=== PATIENT | female | born 1995 | race Caucasian/White ===

== ENCOUNTER → 2017-07-02 | Outpatient (CLI) | payer OTHER | END | disposition home or self-care (01) | LOC: C.RDSM 08:02 | PROVIDERS: ATTEND Orthopaedic Surgery | DX: M25.551 Pain in right hip (principal) ==

== ENCOUNTER → 2017-07-23 | Outpatient (CLI) | payer OTHER | END | disposition home or self-care (01) | LOC: C.RDSM 12:53 | PROVIDERS: ATTEND Orthopaedic Surgery | DX: M25.351 Other instability, right hip (principal) ==

== ENCOUNTER → 2017-08-09 | Day surgery (SDC) | payer OTHER ==
[2017-08-04 15:03] VITALS: Ht 165.1 cm; Wt 63.6 kg
[~2017-08-09] VITALS: Ht 165.1 cm; Wt 63.6 kg
[~2017-08-09] MED LIST: ATROPINE SULFATE 0.1 MG/ML 5ML SYR IV PRN; CEFAZOLIN 2000MG IV PUSH 10 ML IV SCH; DEXAMETHASONE SOD INJ 4 MG/ML VIAL ONE; EpINEphrine INJ 1MG/ML AMP 1 MG/ML AMP ONE; FENTANYL CITRATE INJ 50 MCG/1 ML 2 ML VIAL ONE; GLYCOPYRROLATE INJ 0.2 MG/ML VIAL ONE; HYDROmorphone INJ 1 MG/ML SYR ONE; HYDROmorphone INJ 2 MG/ML SYR/VIAL IV PRN; KETOROLAC TROMETHAMINE 30 MG/ML VIAL IV. PRN; LACTATED RINGER'S 1000ML 1,000 ML IV SCH; LIDOCAINE HCL 2% 2 ML VIAL (20MG/ML) ONE; MEPERIDINE HCL 25 MG/ML CARP IV PRN; MIDAZOLAM HCL 1 MG/ML 2ML VIAL ONE; MoRPHine SULFATE 2 MG/ML CARP IV PRN; MoRPHine SULFATE 4 MG/ML 1 ML CARP\\VIAL IV PRN; NAPR250T43 PO; NEOSTIGMINE METHYLSULFATE 5 MG/5 ML SYR ONE; ONDANSETRON INJ 2 MG/ML 2 ML VIAL IV PRN; ONDANSETRON INJ 2 MG/ML 2 ML VIAL ONE; OXYCODONE/ACETAMINOPHEN 5-325 TAB PO PRN; PROMETHAZINE HCL INJ 12.5 MG in SODIUM CHLORIDE 0.9% 50ML 50 ML IV PRN; PROPOFOL IV EMULSION 10 MG/ML 20 ML VIAL IV ONE; ROCURONIUM BROMIDE 10 MG/ML 5 ML VIAL IV ONE; ROPIVACAINE 0.5% 5 MG/ML 30 ML VIAL ONE; SODIUM CHLORIDE 0.9% 1000ML 1,000 ML IV SCH
--- NOTE | 2017-08-09 10:13 | History & Physical Bridge - [place] ---
H&P Re-Evaluation Bridge Note: I have examined the patient, reviewed the History & Physical and in the interval since the performance of the History & Physical I have noted the following changes of clinical significance: No changes noted
--- NOTE | 2017-08-09 14:39 | [facility] Operative Report ---
Operative Report Operative Date Aug 09, 2017. Pre-Operative Diagnosis Right Hip Femoral Acetabular Impingement, Instability Post-Operative Diagnosis Same Procedure(s) Performed Right Hip Arthroscopic Labral Repair, Cheilectomy Of Hip, Capsular Plication Surgeon Dr. Davila Dock Manager Surgeon(s) Court Trevizo, Fellow; Paxton Dorsey PA-C Estimated Blood Loss Minimal Findings none Specimens None Complication(s) None Disposition Recovery Room / PACU I attest to the content of the Intraoperative Record and any orders documented therein. Any exceptions are noted below.
--- NOTE | 2017-08-09 14:45 | Discharge Instructions ---
Discharge Instructions Date of Service Aug 09, 2017. Admission Reason for Admission: Right Hip Femoral Acetabular Impingement, Instabil Discharge Discharge Diagnosis / Problem: Right hip femoral acetabular impingement, instability Discharge Goals Goal(s): Decrease discomfort, Improve function, Increase independence Activity Recommendations Activity Limitations: as noted below Lifting Limitations: until after follow-up appointment Exercise/Sports Limitations: until after follow-up appointment May Resume Sexual Activity: after follow-up appointment Shower/Bathe: tomorrow, keep incision dry Driving or Machine Use: after cleared by orthopedic surgeon Weightbearing Status: Right non-weightbearing . Instructions / Follow-Up Instructions / Follow-Up Post-operative Instructions Dear Patient and Family/Friends, Before you are discharged from the hospital, it is important to know what to expect when you get home after surgery. To that end, we have created this sheet of discharge instructions which covers many commonly asked questions. Make sure you go through this sheet in its entirety with your nurse before you are discharged. Please note that we will go over the specifics of your surgery and recovery when you return for your first post-operative visit. Sincerely, Dr. Davila Pain Expect to be in a fair amount of pain after surgery. Remember, our goal is not to eliminate your pain, but to make it tolerable. It is a good idea to stay ahead of your pain by taking the medications you were prescribed once you get home. Typically, the pain starts improving 3-7 days after surgery. You should start weaning off the narcotic pain medication (oxycodone, hydrocodone, hydromorphone, morphine) as soon as your pain improves. Please call our office if your pain is not adequately controlled. Ice Ice your operative site at least 5 times a day for 15-30 minutes at a time. Make sure you have a thin cloth between the ice or cooling unit and your skin to prevent schmitt bite. This is especially important if you received a nerve block. Continue icing your operative site for the first 5-7 days after surgery , then as needed. Diet/Nausea/Vomiting Start by drinking clear liquids and eating crackers. If you can tolerate this, then you may resume your normal diet. If you feel nauseated or vomit, take Zofran/ondansetron (if prescribed). Please call our office if you have intractable nausea or vomiting, or, if after hours, you may go to the Emergency Room for help. Constipation Constipation is a common side effect of narcotic pain medication. If you have not had a bowel movement within 2 days after surgery, we recommend purchasing an over the counter laxative such as Milk of Magnesia, Dulcolax, or Miralax from a local pharmacy, and taking it as instructed. Call our clinic if any questions. Slings and Braces If you were placed in a sling or brace, it must be worn at all times, including sleep. You may remove your sling or brace for physical therapy, home exercises , and showering. The length of time you will be in your brace and range of motion restrictions depends on what surgery you had; these details will be reviewed at your first post-operative appointment. Nerve block The anesthesia team sometimes places a nerve block to help with post-operative pain control. This results in significant numbness and inability to move the extremity. The nerve block usually wears off in 8-12 hours, but sometimes can last up to 24 hours. Please call our office if you are still unable to move your extremity after 24 hours, unless you received a pain pump to take home. Nerve blocks typically wear off quickly, so start taking pain medication as soon as you start feeling soreness near your surgical site. Weight bearing and Range of Motion. Do not bear any weight through your operative extremity immediately after surgery. If you had upper extremity surgery, do not lift anything with that arm. If you are in a knee brace, keep it locked in place until your follow-up. We will discuss your weight bearing, range of motion, and lifting restrictions in detail at your first post-operative appointment. Continuous Passive Motion (CPM) Machine If you were prescribed a CPM machine, it will start after your first post- operative appointment, at which time we will give you instructions on the range of motion settings and duration of treatment Physical therapy You will be given a prescription for physical therapy or occupational therapy at your first post-operative appointment. Typically, patients start therapy within 1 week of surgery Wound care and showering We will inspect your wound at your first post-operative visit, and may do a dressing change at that time. Most patients will be in a water-proof dressing that is removed 14 days after surgery. It is normal to see some dried blood on the dressing. Do not remove your dressing, paper strips or sutures yourself unless you are given permission. Showering is allowed the day after surgery. Do not scrub or remove any dressings. The wound should not be submerged underwater (i.e. in a bathtub or pool) until 4 weeks after surgery EDY stockings If you were given white stockings, these are to be worn at all times except to shower (on both legs) for the first 2 weeks after surgery. Driving You may not drive while taking narcotic pain medication or while in a cast, splint, sling or brace. You, the patient, need to make the final determination about when you are safe to drive, however, the earliest you may consider driving after surgery is below: Hand/Wrist/Elbow Surgery: 3 days Shoulder Surgery: 2 weeks Hip,/Knee/Ankle Surgery: 4 weeks Fracture repair: 6 weeks Return to Work Your return to work depends on what surgery was done and what type of work you do. Please bring any paperwork your employer needs completed to your first post -operative visit. Also, bring a description of your job duties, as this helps us to understand what risks you may face at work. Travel Avoid long distance travel (greater than 1 hour) in airplanes and cars for the first 6 weeks after surgery. If you must travel, you need to have a Doppler ultrasound done before you travel to rule out a blood clot in your legs. Follow-up You should have a follow-up appointment already scheduled 1-2 days after surgery. If not, please contact our office to make this appointment before you leave the hospital. When to call the office It is normal to have swelling and bruising in the limb that was operated on. This will improve with time. It is also normal to have fevers for the first 2 days after surgery. Reasons you should call your doctor include: Uncontrolled pain; Nausea, vomiting, or constipation that does not improve with medication; Fevers over 101.5, chills, sweats; Drainage or bleeding from the wound; Foul odor; Spreading areas of redness; Any other concerns Current Hospital Diet Patient's current hospital diet: Discharge Diet Recommended Diet: Regular Diet Procedures Procedures Performed: Right Hip Arthroscopic Labral Repair, Cheilectomy Of Hip, Capsular Plication Pending Studies Studies pending at discharge: no Medical Emergencies . Who to Call and When: Medical Emergencies: If at any time you feel your situation is an emergency, please call 911 immediately. . Non-Emergent Contact Non-Emergency issues call your: Primary Care Provider Call Non-Emergent contact if: you have a fever, temperature is above 101.5, your pain is not controlled, your pain is worsening, wound has increased drainage, wound has increased redness, you have any medication questions . "Provider Documentation" section prepared by Quintin Dorsey. . VTE Core Measure Inpt VTE Proph given/why not?: Other Anticoagulation (EC Aspirin 81 mg daily for 30 days), Daniele Baxter [place] Drug Monitoring Program Search Results: patient reviewed within database, no issues identified, see additional documentation
--- NOTE | 2017-08-09 14:50 | [facility] Post Operative Brief Note ---
Immediate Operative Summary Operative Date Aug 09, 2017. Pre-Operative Diagnosis Right Hip Femoral Acetabular Impingement, Instability Post-Operative Diagnosis Same Procedure(s) Performed Right Hip Arthroscopic Labral Repair, Cheilectomy Of Hip, Capsular Plication Surgeon Dr. Davila Rides Supervisor Surgeon(s) Court Trevizo, Fellow; Paxton Dorsey PA-C Estimated Blood Loss Minimal Findings Hip joint distracted with gross traction indicating instability. Chondrolabral disruption from 2 to 12 o'clock repaired with 3 nanotack anchors. CAM deformity resected (cheilectomy). Capsule plicated with 3 nonabsorbable sutures. Specimens None Drains None Anesthesia General with local Complication(s) None Disposition Recovery Room / PACU
--- NOTE | 2017-08-09 15:39 | OPERATIVE REPORT ---
DATE OF OPERATION: 08/09/2017 PREOPERATIVE DIAGNOSES: 1. Right hip microinstability. 2. Right hip femoral acetabular impingement, Cam type. POSTOPERATIVE DIAGNOSES: Same and chondral labral disruption from the 2 o'clock to 12 o'clock position. OPERATIONS PERFORMED: 1. Right hip arthroscopic labral repair. 2. Right hip cheilectomy. 3. Right hip capsular plication. SURGEON: Gaurang Davila MD LIVESTOCK TRADER SURGEONS: Cedrick Trevizo MD and Willian Ribeiro PA. ESTIMATED BLOOD LOSS: Minimal. IMPLANTS: Three [employer] anchors. SPECIMENS: None. COMPLICATIONS: None. INDICATIONS: Ms. Daniel is a 22-year-old female who has had several months of intractable hip pain. She has undergone physical therapy, which has not given her satisfactory relief. She is unable to sit comfortably without pain. Her activities are severely limited as she cannot run and even walking long distances hurts. She had an intra-articular injection, which completely relieved her pain. Physical exam showed a positive impingement in Scour tests. X-rays and MRI show a thin capsule as well as a Cam deformity of her femoral head. I had a long discussion with her about the risks and benefits of surgery, alternatives to surgery and expected outcomes. After reviewing all these, she elected to proceed with surgery. All questions were answered. Informed consent was signed. OPERATIVE FINDINGS: 1. The acetabulum showed normal cartilage with the exception of bubbling of the cartilage from the 12 o'clock to the 2 o'clock position consistent with a chondral labral disruption secondary to Cam deformity. 2. The labrum showed cracking and instability from the 12-2 o'clock position. 3. The articular cartilage of the femoral head was normal. There was a Cam deformity noted on the anterior and superior aspect of the femoral head. 4. The chondral labral disruption was repaired with 3 nanotech suture anchors. A cheilectomy was performed to correct her Cam deformity. The capsule was plicated with 3 nonabsorbable #2 sutures. DESCRIPTION OF THE OPERATION: The patient was identified in the preoperative holding area, where her surgical site was marked. She was brought back to main operating room. She was placed on the operating table and general anesthesia was administered. All bony prominences were padded. Perioperative antibiotics were administered. She was placed on the traction table and we obtained our fluoroscopic views. The hip was distractible with only gross traction. We therefore then reduced the hip and prepped and draped the hip. Prior to incision, a multidisciplinary timeout was called. All in the room were in agreement. I began by creating our anterolateral portal. A modified anterior portal was then created under direct visualization. An interportal capsulotomy was created with a Samurai blade. Cautery was used to achieve hemostasis from any capsular bleeders. We then performed a diagnostic arthroscopy, revealing the above findings. Once her diagnostic arthroscopy was complete, we then developed the capsule labral recess with electrocautery. A DALA portal was created. Our first anchor was placed through the anterolateral portal at the 12 o'clock position. This was under fluoroscopic guidance. A NanoPass was then used to pass the suture in a vertical mattress configuration. The suture was tied down without difficulty. Next, through the DALA portal, a second anchor was placed at the 1 o'clock position. The suture shuttled through the modified anterior portal and passed through the labrum again in a vertical mattress fashion. These were similarly tied down. Finally, a third anchor was placed at the 2 o'clock position. This was packed in a circumferential stitch pattern around the labrum and tied down without difficulty. Next, we probed our labrum and we were happy with increased stability of our labrum indicating successful repair. At this point, the traction was let down on the hip. Total traction time was under 2 hours. The hip was then flexed up to 30 degrees and externally rotated. The bur was used to resect her Cam deformity, leaving approximately 1 cm margin between the beginning of the Cam resection and the edge of the labrum. The hip was then internally rotated and brought into extension to finish the cheilectomy more in the lateral aspect of the head. The fluoroscopy was then brought in to confirm the adequacy of our Cam resection, which we were happy with. We then used the 70 degree pivot slingshot to close the capsule with 3 [id number] TigerWire and FiberWire #2 sutures respectively. At this point, the arthroscopic instruments were removed. The portals were closed with 3-0 nylon sutures. The pericapsular area of the hip as well as the portals were injected with 30 mL of 0.5% Naropin for postoperative pain control. 4 x 4's, ABDs and Tegaderm dressing was placed. The patient was awoke from anesthesia and transferred to the recovery room in stable condition. POSTOPERATIVE COURSE: The patient will be discharged home from the recovery room. She will be in a brace from 0-70 degrees for the next 2 weeks, foot flat weightbearing, no more than 20 pounds on crutches. At the 2 week point, we will discontinue her brace and allow her to wean off her crutches to weightbearing as tolerated. She will return for physical therapy tomorrow. She will be on aspirin for DVT prophylaxis. I attest to the content of the Intraoperative Record and any orders documented therein. Any exception s are noted below.
[2017-08-09 16:03] VITALS: TEMP 36.6
--- NOTE | 2017-08-09 16:07 | Anesthesia Progress Nt - [facility] ---
Anesthesia Post Op Note Date & Time Aug 09, 2017 at 16:07 Vital Signs Pain Intensity: 0 Vital Signs Past 12 Hours Date Time Temp Pulse Resp B/P (MAP) Pulse Ox O2 Delivery O2 Flow Rate FiO2 08/09/17 15:24 83 8 100 08/09/17 15:24 85 8 08/09/17 15:22 36.6 90 12 125/75 97 Room Air 08/09/17 15:21 125/75 08/09/17 15:19 97 19 98 08/09/17 15:19 96 19 08/09/17 15:16 132/66 08/09/17 15:14 101 16 100 08/09/17 15:14 100 16 08/09/17 15:11 121/68 08/09/17 15:09 84 13 08/09/17 15:09 83 13 100 08/09/17 15:06 129/81 08/09/17 15:04 84 27 08/09/17 15:04 81 27 100 08/09/17 15:01 119/62 08/09/17 14:59 79 15 08/09/17 14:59 78 15 100 08/09/17 14:56 115/64 08/09/17 14:54 79 16 08/09/17 14:54 78 16 100 08/09/17 14:51 117/68 08/09/17 14:49 79 17 99 08/09/17 14:49 79 17 08/09/17 14:46 110/63 08/09/17 14:44 71 15 97 08/09/17 14:44 72 15 08/09/17 14:41 105/56 08/09/17 14:40 111/63 08/09/17 14:39 36.4 67 16 111/63 99 Mask 6 08/09/17 14:39 85 08/09/17 14:39 85 99 08/09/17 08:18 36.5 78 16 107/73 (84) 96 Room Air Notes Mental Status: alert / awake / arousable, participated in evaluation Pt Amnestic to Procedure: Yes Nausea / Vomiting: adequately controlled Pain: adequately controlled Airway Patency, RR, SpO2: stable & adequate BP & HR: stable & adequate Hydration State: stable & adequate Anesthetic Complications: no major complications apparent
[2017-08-09 16:33] VITALS: BP 116/81; PULSE 66; O2SAT 100
== END | disposition home or self-care (01) ==
LOC: X.SURG 07:38
PROVIDERS: ATTEND Orthopaedic Surgery
DX: M25.351 Other instability, right hip (principal); M25.859 Other specified joint disorders, unspecified hip; M24.151 Other articular cartilage disorders, right hip; Z83.3 Family history of diabetes mellitus

== ENCOUNTER → 2017-09-22 | Outpatient (CLI) | payer OTHER ==
[~2017-09-22] MED LIST changes: -ATROPINE SULFATE 0.1 MG/ML 5ML SYR IV PRN; -CEFAZOLIN 2000MG IV PUSH 10 ML IV SCH; -DEXAMETHASONE SOD INJ 4 MG/ML VIAL ONE; -EpINEphrine INJ 1MG/ML AMP 1 MG/ML AMP ONE; -FENTANYL CITRATE INJ 50 MCG/1 ML 2 ML VIAL ONE; -GLYCOPYRROLATE INJ 0.2 MG/ML VIAL ONE; -HYDROmorphone INJ 1 MG/ML SYR ONE; -HYDROmorphone INJ 2 MG/ML SYR/VIAL IV PRN; -KETOROLAC TROMETHAMINE 30 MG/ML VIAL IV. PRN; -LACTATED RINGER'S 1000ML 1,000 ML IV SCH; -LIDOCAINE HCL 2% 2 ML VIAL (20MG/ML) ONE; -MEPERIDINE HCL 25 MG/ML CARP IV PRN; -MIDAZOLAM HCL 1 MG/ML 2ML VIAL ONE; -MoRPHine SULFATE 2 MG/ML CARP IV PRN; -MoRPHine SULFATE 4 MG/ML 1 ML CARP\\VIAL IV PRN; -NEOSTIGMINE METHYLSULFATE 5 MG/5 ML SYR ONE; -ONDANSETRON INJ 2 MG/ML 2 ML VIAL IV PRN; -ONDANSETRON INJ 2 MG/ML 2 ML VIAL ONE; -OXYCODONE/ACETAMINOPHEN 5-325 TAB PO PRN; -PROMETHAZINE HCL INJ 12.5 MG in SODIUM CHLORIDE 0.9% 50ML 50 ML IV PRN; -PROPOFOL IV EMULSION 10 MG/ML 20 ML VIAL IV ONE; -ROCURONIUM BROMIDE 10 MG/ML 5 ML VIAL IV ONE; -ROPIVACAINE 0.5% 5 MG/ML 30 ML VIAL ONE; -SODIUM CHLORIDE 0.9% 1000ML 1,000 ML IV SCH
== END | disposition home or self-care (01) ==
LOC: C.RDSM 08:00
PROVIDERS: ATTEND Orthopaedic Surgery
DX: S73.191A Other sprain of right hip, initial encounter (principal); X58.XXXA Exposure to other specified factors, initial encounter